=== PATIENT | male | born 1940 | race Caucasian/White ===

== ENCOUNTER 2021-01-31 07:26 | Outpatient (RCR) | payer MEDICARE, SELFPAY ==
[2021-01-31] MEDS: COVID-19 VACC, MRNA(PFIZER)/PF 30 MCG/0.3 ML SYRINGE IM (11:25)
[2021-02-21] MEDS: COVID-19 VACC, MRNA(PFIZER)/PF 30 MCG/0.3 ML SYRINGE IM (11:29)
== END 2021-01-31 23:59 ==
LOC: IMMUN 07:26
PROVIDERS: Referring Provider Family Medicine; Visit Provider Family Medicine
DX: Z23 Encounter for immunization (principal)
CPT/HCPCS: 0001A; 0002A